=== PATIENT | male | born 1955 | race Caucasian/White ===

== ENCOUNTER 2016-11-15 23:11 | Emergency (ER) | payer OTHER ==
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
[2016-11-15 23:31] VITALS: BP 151/85
== END 2016-11-16 00:15 | disposition home or self-care (01) ==
LOC: VM.ED 23:11
DX: S63.632A Sprain of interphalangeal joint of right middle finger, initial encounter (principal); E78.00 Pure hypercholesterolemia, unspecified; Z79.899 Other long term (current) drug therapy; Z98.890 Other specified postprocedural states; V89.2XXA Person injured in unspecified motor-vehicle accident, traffic, initial encounter
CPT/HCPCS: 73110-RT; 73130-RT; 99284